=== PATIENT | female | born 1990 | race Caucasian/White ===

== ENCOUNTER 2021-03-14 14:37 | Outpatient (CLI) | payer OTHER, SELFPAY ==
[2021-03-14] VITALS (10 sets, daily range): BP systolic 113–141; BP diastolic 62–108; PULSE 50–89
[2021-03-14 15:30] LABS: Basophils Absolute Auto 0.1 K/mm3 (0.0-0.1); Basophils Percent Auto 0.5 % (0.2-1.2); Eosinophils Absolute Auto 0.2 K/mm3 (0-0.3); Eosinophils Percent Auto 1.9 % (0-4.4); Immature Granulocyte Absolute 0.04 K/mm3 (0.00-0.031); Immature Granulocyte Percent A 0.4 % (0-0.5); Lymphocytes Percent Auto 18.7 % (18.3-44.2); Mean Corpuscular HGB Conc 32.4 g/dl (32-36); Mean Corpuscular Hemoglobin 31.2 pg (26-34); Mean Corpuscular Volume 96.3 fl (80-100); Mean Platelet Volume 11.4 fl (7.4-10.4); Monocytes Absolute Auto 0.5 K/mm3 (0.1-0.6); Monocytes Percent Auto 4.7 % (2.6-8.5); Neutrophils Absolute Auto 7.9 K/mm3 (1.3-6.7); Neutrophils Percent Auto 73.8 % (45.5-73.1); Platelet Count Result 194 k/mm3 (150-375); Red Blood Count 3.53 M/mm3 (4.2-5.4); White Blood Count 10.7 K/mm3 (4.5-10.0)
[2021-03-14 15:34] LABS: Add Urine Microscopic? YES; Appearance Urine Clear (Clear); Bacteria Urine Trace /hpf; Bilirubin Urine 1+ (Negative); Blood Urine Negative (Negative); Color Urine Amber (Yellow); Glucose Urine UA Negative (Negative); Ketones Urine Negative (Negative); Leukocyte Esterase Ur Trace LEU/UL (NEGATIVE); Mucus Urine Rare /lpf; Nitrate Urine Negative (Negative); Protein Urine 2+ mg/dL (Negative); RBC Urine 0-2 /hpf (0-2); Squamous Epithelial Cell Urine Rare /hpf (Few)
[2021-03-14 15:40] LABS: Alanine Aminotransferase 18 U/L (4-35); Albumin Level 2.9 g/dL (3.5-5.1); Alkaline Phosphatase 127 U/L (38-126); Anion Gap 4 mmol/L (8-16); Aspartate Amino Transferase 25 U/L (14-36); Bilirubin,Total 0.3 mg/dL (0.2-1.3); Blood Urea Nitrogen 11 mg/dL (7-17); Calcium 8.4 mg/dL (8.4-10.2); Carbon Dioxide 21 mmol/L (22-30); Chloride 110 mmol/L (98-107); Estimated Glomerular Filt Rate > 60; Glucose 87 mg/dL (65-110); Sodium 135 mmol/L (137-145)
[2021-03-14 15:47] LABS: Specific Grav Ur 1.046 (1.001-1.035)
--- NOTE | 2021-03-14 16:31 | PCCCNOTE ---
Care Coordination Consult: Met with pt. alone. Pt. reports she lives at home with her Iban and Female significant other Farida. Pt. reports that both Iban and Summer are supportive, however Iban can be selfish at times and he tends to pout if he doesn't get his way. Pt. reports that she wants Farida to be her support person when she gives in April and this will likely hurt Bian's feelings. Pt. denies that Iban will be physically or emotionally abusive to her. Pt. did again report he will likely get his feelings hurt as he wants to be present for the . Pt. reports that ultimately it is her choice which of her spouses she wants with her during the and feels Summer will be more there for her emotionally. This is pt.'s, Perez, and Iban's first child. Summer did come in towards the end of Care Coordination being in the room and again reiterated that neither pt. or Summer are fearful of Iban. They report they will speak to him together about pt.'s choice to have Summer be her support person at time of baby's .
[2021-03-14 17:25] LABS: Creatinine Urine 572.1 mg/dL
[2021-03-14 17:28] LABS: Total Protein Urine Random < 5 mg/dL; Ur Ttl Prot Creatinine Ratio < 0.01 mg/mg (0-0.20)
--- NOTE | 2021-03-14 17:56 | PC.NURSE ---
2470--Pt's s.o. had approached us re: having 2 s.o. present with the pt. because they are polyamorous, and it is very important that all the parents be present at the . After speaking with Felicita Ze about their situation it was decided to stay with the current one support person allowed with the pt. The pt. then decided she will not have any support people. After speaking with the pt. and encouraging her to maybe choose the person who would be the most supportive and positive, she states, yeah, if he will allow that. I then asked about her home situation and if she feels safe at home. Her response was yeah, physically. I then asked if she was free to come and go as she wishes and her response was in theory, but I don't have a license, or a car [place] I'm actually pretty isolated. After our conversation I then spoke with my charge nurse and placed a care coordination consult to come see the pt.
--- NOTE | 2021-03-14 18:23 | PC.NURSE ---
1745--Full report given to Libby Piper CNM, re: v.s., fhr tracing, uterine activity, and home situation. Orders for DC home.
== END 2021-03-14 17:50 | disposition home or self-care (01) ==
LOC: ANHOBOP 14:47 → ANHOBPP 15:04
PROVIDERS: PCP Advanced Practice Midwife; Visit Provider Obstetrics & Gynecology
DX: O13.9 Gestational [pregnancy-induced] hypertension without significant proteinuria, unspecified trimester (principal); Z3A.00 Weeks of gestation of pregnancy not specified
CPT/HCPCS: 36415; 59025; 80053; 81001; 82570; 84156; 84550; 85025; 87086; 87088; 99199

== ENCOUNTER 2021-04-07 19:48 | Inpatient (IN) | payer OTHER, SELFPAY ==
--- NOTE | 2021-03-23 16:34 | PC.NURSE ---
PATIENT LIVES WITH AND FEMALE PARTNER
--- NOTE | 2021-04-07 23:30 | PC.NURSE ---
ARRIVED IN OB at 194. Admission deferred on arrival due to cenus in department. Libby Piper CNM and pt advised of delay.
[2021-04-07 23:37] LABS: Glucose Point of Care 69 mg/dl (65-105)
[2021-04-07 23:44] LABS: Basophils Absolute Auto 0.1 K/mm3 (0.0-0.1); Basophils Percent Auto 0.5 % (0.2-1.2); Eosinophils Absolute Auto 0.2 K/mm3 (0-0.3); Eosinophils Percent Auto 1.5 % (0-4.4); Hematocrit 36.5 % (37.0-47.0); Hemoglobin 11.9 g/dL (12.0-15.0); Immature Granulocyte Absolute 0.05 K/mm3 (0.00-0.031); Immature Granulocyte Percent A 0.4 % (0-0.5); Lymphocytes Absolute Auto 2.58 K/mm3 (0.9-3.2); Lymphocytes Percent Auto 22.1 % (18.3-44.2); Mean Corpuscular HGB Conc 32.6 g/dl (32-36); Mean Corpuscular Hemoglobin 30.4 pg (26-34); Mean Corpuscular Volume 93.4 fl (80-100); Monocytes Absolute Auto 0.6 K/mm3 (0.1-0.6); Neutrophils Absolute Auto 8.2 K/mm3 (1.3-6.7); Neutrophils Percent Auto 70.5 % (45.5-73.1); Platelet Count Result 195 k/mm3 (150-375); Red Blood Count 3.91 M/mm3 (4.2-5.4); Red Cell Distribution Width 13.2 % (11.5-14.5); White Blood Count 11.7 K/mm3 (4.5-10.0)
[2021-04-07 23:54] LABS: Alanine Aminotransferase 15 U/L (4-35); Alkaline Phosphatase 153 U/L (38-126); Anion Gap 6 mmol/L (8-16); Aspartate Amino Transferase 25 U/L (14-36); Bilirubin,Total 0.1 mg/dL (0.2-1.3); Blood Urea Nitrogen 10 mg/dL (7-17); Calcium 9.2 mg/dL (8.4-10.2); Carbon Dioxide 20 mmol/L (22-30); Chloride 107 mmol/L (98-107); Estimated Glomerular Filt Rate > 60; Glucose 65 mg/dL (65-110); Potassium 3.8 mmol/L (3.4-5.0); Sodium 133 mmol/L (137-145)
[2021-04-08] VITALS (153 sets, daily range): BP systolic 87–156; BP diastolic 58–110; PULSE 44–111; RESP 16–18; TEMP 36.5–37.2; O2SAT 96–100
--- NOTE | 2021-04-08 00:21 | LDADM ---
This patient, Sven Lewis, was admitted to Labor/Delivery/Recovery 108 on 04/07/21 at 19:48. Plans for labor, pain management and were discussed with patient. Patient/family oriented to hospital policies and general routines including ID bracelet, bed and alarms, visiting hours, pain management, procedures, bathroom and other care routines, personal items, smoking policy, room service/diet and guest tray routines, security routines, and visiting hours. Patient/Family are encouraged to report perceived risks to care and to ask questions if they do not understand what they are told or what they should do. See OBIX for further documentation.
[2021-04-08] MEDS: OXYTOCIN 30 UNITS/NS 500 ML 30 UNITS/500 ML BAG 4 UNITS IV CONT (01:00)
[2021-04-08] MEDS: LACTATED RINGERS 1,000 ML 125 ML IV CONT ×3 (01:00→09:16)
[2021-04-08 01:52] LABS: Uric Acid 6.5 mg/dL (2.5-7.5)
[2021-04-08 02:30] LABS: HIV 1/2 Ab P24 Ag Result Negative (Negative)
[2021-04-08 03:52] LABS: Glucose Point of Care 108 mg/dl (65-105)
[2021-04-08 05:47] LABS: Amphetamine Screen Urine Negative (Negative); Barbiturate Screen Urine Negative (Negative); Benzodiazepines Screen Urine Negative (Negative); Cannabinoid Screen Urine Positive (Negative); Cocaine Screen Urine Negative (Negative); Methadone Screen Urine Negative (Negative); Opiate Screen Urine Negative (Negative); Phencyclidine Screen Urine Negative (Negative)
--- NOTE | 2021-04-08 08:08 | WPDANESEPPF ---
Anes - Initial Pre Proc Eval Date/Time: 04/08/21 08:08 Surgeon: Karen Merida MD Pre Op Diagnosis: IOL Patient Data Age: 30 Gender: F Height: Weight: Last Vital Signs Temp 36.6 C 04/08/21 07:51 Pulse 79 04/08/21 08:07 Resp 16 04/08/21 07:51 BP 127/95 H 04/08/21 08:07 Pulse Ox 98 04/08/21 08:05 Allergies Allergy/AdvReac Type Severity Reaction Status Date / Time hydroxyzine Allergy Unknown Unknown Verified 03/23/21 15:51 meperidine Allergy Unknown Anaphylactic Verified 03/23/21 15:51 Shock sumatriptan Allergy Unknown Other Verified 03/23/21 15:51 lanolin Allergy Rash Verified 03/23/21 15:51 Home Medications Medication Instructions Recorded Confirmed Type albuterol 1 mcg INHALATION PRN 03/23/21 04/07/21 History ondansetron HCl [Zofran] 8 mg PO Q12H 03/23/21 03/23/21 History prenat.vits,taryn,[id number] 1 tablet PO DAILY 03/23/21 03/23/21 History [ #2] Laboratory Tests 04/07/21 04/07/21 04/07/21 23:31 23:31 23:31 WBC 11.7 K/mm3 H K/mm3 (4.5-10.0) RBC 3.91 M/mm3 L M/mm3 (4.2-5.4) Hgb 11.9 g/dL L g/dL (12.0-15.0) Hct 36.5 % L % (37.0-47.0) MCV 93.4 fl fl (80-100) MCH 30.4 pg pg (26-34) MCHC 32.6 g/dl g/dl (32-36) RDW 13.2 % % (11.5-14.5) Plt Count 195 k/mm3 k/mm3 (150-375) MPV 12.0 fl H fl (7.4-10.4) Immature Gran % (Auto) 0.4 % % (0-0.5) Neut % (Auto) 70.5 % % (45.5-73.1) Lymph % (Auto) 22.1 % % (18.3-44.2) Saline % (Auto) 5.0 % % (2.6-8.5) Eos % (Auto) 1.5 % % (0-4.4) Baso % (Auto) 0.5 % % (0.2-1.2) Lymph # (Auto) 2.58 K/mm3 K/mm3 (0.9-3.2) Saline # (Auto) 0.6 K/mm3 K/mm3 (0.1-0.6) Eos # (Auto) 0.2 K/mm3 K/mm3 (0-0.3) Baso # (Auto) 0.1 K/mm3 K/mm3 (0.0-0.1) Abs Immat Gran (auto) 0.05 K/mm3 H K/mm3 (0.00-0.031) Absolute Neuts (auto) 8.2 K/mm3 H K/mm3 (1.3-6.7) Absolute Nucleated RBC 0.0 K/mm3 K/mm3 (0.0-0.012) Nucleated RBC % 0.0 % % (0.0-0.2) Sodium Potassium Chloride Carbon Dioxide Anion Gap BUN Creatinine Estim Creat Clear Calc Estimated GFR Glucose POC Capillary Glucose Uric Acid Calcium Total Bilirubin AST ALT Alkaline Phosphatase Total Protein Albumin Urine Opiates Screen Urine Methadone Screen Ur Barbiturates Screen Ur Phencyclidine Scrn Ur Amphetamine Screen U Benzodiazepines Scrn Urine Cocaine Screen U Cannabinoids Screen RPR Pending HIV 1&2 Ab/P24 Ag 4thGn Blood Type AB Positive Antibody Screen Negative 04/07/21 04/07/21 04/07/21 23:31 23:31 23:31 WBC RBC Hgb Hct MCV MCH MCHC RDW Plt Count MPV Immature Gran % (Auto) Neut % (Auto) Lymph % (Auto) Saline % (Auto) Eos % (Auto) Baso % (Auto) Lymph # (Auto) Saline # (Auto) Eos # (Auto) Baso # (Auto) Abs Immat Gran (auto) Absolute Neuts (auto) Absolute Nucleated RBC Nucleated RBC % Sodium 133 mmol/L L mmol/L (137-145) Potassium 3.8 mmol/L mmol/L (3.4-5.0) Chloride 107 mmol/L mmol/L (98-107) Carbon Dioxide 20 mmol/L L mmol/L (22-30) Anion Gap 6 mmol/L L mmol/L (8-16) BUN 10 mg/dL mg/dL (7-17)
[2021-04-08 09:13] LABS: Glucose Point of Care 73 mg/dl (65-105)
[2021-04-08 09:47] LABS: Rapid Plasma Reagin Non-Reactive (NonReactive)
[2021-04-08 10:59] LABS: Glucose Point of Care 59 mg/dl (65-105)
[2021-04-08] MEDS: DEXTROSE 5%/LACTATED RINGERS 1,000 ML 125 ML IV CONT (11:06)
[2021-04-08] MEDS: FAMOTIDINE 20 MG/2 ML VIAL IV PUSH (12:10)
--- NOTE | 2021-04-08 14:20 | WPDOBADMIT ---
Obstetrics - Admit Note Admission Note: 30 y/o G1 here for induction of labor d/t gestational hypertension and GDM. record reviewed. No pertinent additions to the history and/or any subsequent changes in the physical findings that are not consistent with the expected course of the were found. Additions to the history and/or subsequent changes in the physical findings follow. None.
--- NOTE | 2021-04-08 14:20 | PM.OBPRVD ---
OB - Delivery Note Procedure events: Gestational Diabetes, Induced HTN and Labor Induction Intrapartal events: None Delivery monitor: external FHT, external uterine and internal FHT Route of delivery: Episiotomy description: None Laceration Description: None Quantitative Blood Loss (ml): 69 Anesthesia type: Epidural Narrative: Mother and baby in stable condition. Cord gasses collected and handed off to staff. Baby Date of : 04/08/21 Weeks of gestation at delivery: 38 presentation: vertex position: Right Occiput Anterior Placenta delivery description: Spontaneous score one minute: 9 score five minutes: 9 Narrative: Meconium fluid. Peds present for delivery. Infant vigorous at delivery.
[2021-04-08] MEDS: OXYTOCIN 30 UNITS/NS 500 ML 30 UNITS/500 ML BAG 125 UNITS IV CONT (14:37)
[2021-04-08] MEDS: BENZOCAINE 20% AER SPR (*SP) 56 GM CAN 1 SPRAY TOPICAL (16:20)
[2021-04-08] MEDS: WITCH HAZEL 40 PADS 1 PAD TOPICAL (16:20)
[2021-04-08] MEDS: IBUPROFEN 600 MG TABLET PO ×2 (16:20→22:36)
--- NOTE | 2021-04-08 17:00 | PC.NURSE ---
Patient transferred to post room #285 per wheelchair. Support person present. Oriented to unit, room, information board, rooming in, admission packet and security measures. Patient verbalizes understanding.
[2021-04-09] VITALS: BP 147/83; PULSE 66; RESP 16; TEMP 37; O2SAT 100
[2021-04-09] MEDS: SIMETHICONE 80 MG TAB.CHEW PO (01:21)
[2021-04-09 04:30] LABS: Glucose Point of Care 74 mg/dl (65-105)
[2021-04-09] MEDS: IBUPROFEN 600 MG TABLET PO ×2 (04:40→11:27)
[2021-04-09 04:50] VITALS: BP 152/82; PULSE 60; RESP 18; TEMP 36.7; O2SAT 98
--- NOTE | 2021-04-09 08:34 | PM.OBPNVD ---
OB - PN: Subj Subjective Date/time seen: 04/09/21 08:34 Patient comments: no complaints baby status: doing well OB - PN: Obj Data Labs CBC & Chem 7: 04/07/21 23:31 04/07/21 23:31 Labs: Laboratory Results - last 24 hr 04/07/21 04/08/21 04/08/21 23:31 09:05 10:55 POC Capillary Glucose 73 59 L* RPR Non-reactive 04/09/21 04:26 POC Capillary Glucose 74 RPR OB - PN A/P Plan day: 1 Plan: routine care Time Spent With Patient Time: Total time spent is greater than 50% in coordination of care (as documented) at patient's floor/unit and/or counseling patient: Review of Systems Review of Systems: All systems reviewed & are unremarkable except as noted in HPI and below Exam Narrative: denies lai, visual changes and epigastric pain Const: General: healthy appearing and comfortable Psych: Thought process: Normal thought process present Judgement: Good judgement present (Psych)
--- NOTE | 2021-04-09 09:02 | PM.OBDSVD ---
DS: Admitting Diagnosis Admitting Diagnosis REBECCA GHTN OB - DS: Summary OB Procedures : None OB Procedures Intrapartum: Spontaneous Vag Delivery OB Procedures: : None Time Spent with Patient Time attestation: Total time spent providing and/or coordinating discharge services: DS: Data Data Completed and Pending Pending studies at discharge: Pending at discharge 04/08/21 14:08 Surgical [PTH] Routine Labs on day of discharge: Labs from last 24 hours 04/09/21 04/08/21 04/08/21 04:26 10:55 09:05 POC Capillary Glucose 74 59 L* 73 RPR 04/07/21 23:31 POC Capillary Glucose RPR Non-reactive Discharge Plan Discharge Attending physician on discharge: Karen Merida Discharging Clinician: Pau Rossi Patient Disposition: Home, Self-Care Activity: pelvic rest Diet: regular Patient Instructions: Antibiotic Form Stand Alone Forms: General Discharge Information Follow-up/Referrals: Lydia Piper CNM [Certified Nurse Stereotyper] - 1 Week Discharge Medications: Continued ondansetron HCl [Zofran] 8 mg Tablet 8 mg PO Q12H RF: 0 albuterol 90 mcg/actuation Aerosol 1 mcg INHALATION PRN RF: 0 #2 Tablet 1 tablet PO DAILY RF: 0 Date of admission: 04/07/21 19:48 Primary Care Provider: PHYSICIAN,METAL TILE LATHER Admitting Provider: Karen Merida Attending physician on admission: Karen Merida Condition: Stable
[2021-04-09 10:00] VITALS: BP 132/59; PULSE 69; PULSE 75; RESP 14; TEMP 36.7; O2SAT 100
[2021-04-09] MEDS: DOCUSATE SODIUM 100 MG CAPSULE PO (11:27)
[2021-04-09] MEDS: MULTIVIT/MIN/PREN/FOL AC/IRON TABLET 1 TAB PO (11:27)
[2021-04-09 12:00] VITALS: BP 161/82; PULSE 68; RESP 20
[2021-04-09 12:09] LABS: Hematocrit 32.6 % (37.0-47.0); Hemoglobin 10.3 g/dL (12.0-15.0); Mean Corpuscular HGB Conc 31.6 g/dl (32-36); Mean Platelet Volume 11.7 fl (7.4-10.4); Platelet Count Result 152 k/mm3 (150-375); Red Blood Count 3.43 M/mm3 (4.2-5.4); Red Cell Distribution Width 13.7 % (11.5-14.5); White Blood Count 10.8 K/mm3 (4.5-10.0)
[2021-04-09 12:11] LABS: Hematocrit 33.1 % (37.0-47.0); Hemoglobin 10.4 g/dL (12.0-15.0)
[2021-04-09 12:24] LABS: Alanine Aminotransferase 18 U/L (4-35); Albumin Level 2.8 g/dL (3.5-5.1); Alkaline Phosphatase 132 U/L (38-126); Anion Gap 4 mmol/L (8-16); Aspartate Amino Transferase 37 U/L (14-36); Bilirubin,Total 0.4 mg/dL (0.2-1.3); Blood Urea Nitrogen 9 mg/dL (7-17); Calcium 8.6 mg/dL (8.4-10.2); Carbon Dioxide 23 mmol/L (22-30); Chloride 108 mmol/L (98-107); Estimated Glomerular Filt Rate > 60; Glucose 78 mg/dL (65-110); Glucose 79 mg/dL (65-110); Potassium 4.3 mmol/L (3.4-5.0); Sodium 135 mmol/L (137-145); Uric Acid 5.7 mg/dL (2.5-7.5)
[2021-04-09 17:45] VITALS: BP 146/84; PULSE 72; RESP 20
--- NOTE | 2021-04-09 19:22 | PC.NURSE ---
04/09/2021 at 1910 Patient was given the opportunity to view the discharge video Mother & Baby Care, The First Two Weeks and to ask questions. Patient declined viewing the video and has been given the mother/baby guide for home reference.
[2021-04-12 08:20] VITALS: BP 183/102; PULSE 68; RESP 20
== END 2021-04-09 19:14 | disposition home or self-care (01) | DRG 560 ==
LOC: ANHLDR 21:57 → ANHOB2 04-08 17:20
PROVIDERS: Advanced Practice Midwife; Admitting Provider Obstetrics & Gynecology; Visit Provider Obstetrics & Gynecology
DX: O24.429 Gestational diabetes mellitus in childbirth, unspecified control (principal); O13.4 Gestational [pregnancy-induced] hypertension without significant proteinuria, complicating childbirth; O99.334 Smoking (tobacco) complicating childbirth; O77.0 Labor and delivery complicated by meconium in amniotic fluid; O76 Abnormality in fetal heart rate and rhythm complicating labor and delivery; Z3A.38 38 weeks gestation of pregnancy; Z37.0 Single live birth
CPT/HCPCS: 36415; 80053; 80307; 82947; 82948; 84550; 85014; 85018; 85025; 85027; 86592; 86703; 86850; 86900; 86901; 88307; A9270; G0432; J2590; J2795; J7120; J7121

== ENCOUNTER 2021-04-12 09:22 | Observation (INO) | payer OTHER, SELFPAY ==
[2021-04-12] VITALS (18 sets, daily range): BP systolic 127–177; BP diastolic 69–99; PULSE 50–94; RESP 18; TEMP 36.6–37.2; BMI 34.2
--- NOTE | 2021-04-12 10:29 | OBADM ---
This patient, Sven Lewis, admitted to the OB room 113 for observation for hypertension. Patient/family oriented to hospital policies and general routines including ID bracelet, bed and alarms, visiting hours, pain management, procedures, bathroom and other care routines, personal items, smoking policy, room service/diet, and visiting hours. Patient/Family are encouraged to report perceived risks to care and to ask questions if they do not understand what they are told or what they should do.
[2021-04-12 10:51] LABS: Basophils Percent Auto 0.4 % (0.2-1.2); Eosinophils Absolute Auto 0.4 K/mm3 (0-0.3); Eosinophils Percent Auto 4.1 % (0-4.4); Hematocrit 36.9 % (37.0-47.0); Hemoglobin 11.7 g/dL (12.0-15.0); Immature Granulocyte Absolute 0.03 K/mm3 (0.00-0.031); Immature Granulocyte Percent A 0.3 % (0-0.5); Lymphocytes Absolute Auto 1.88 K/mm3 (0.9-3.2); Lymphocytes Percent Auto 20.2 % (18.3-44.2); Mean Corpuscular HGB Conc 31.7 g/dl (32-36); Mean Corpuscular Hemoglobin 29.7 pg (26-34); Mean Corpuscular Volume 93.7 fl (80-100); Mean Platelet Volume 10.8 fl (7.4-10.4); Monocytes Absolute Auto 0.4 K/mm3 (0.1-0.6); Monocytes Percent Auto 4.2 % (2.6-8.5); Neutrophils Absolute Auto 6.6 K/mm3 (1.3-6.7); Neutrophils Percent Auto 70.8 % (45.5-73.1); Platelet Count Result 251 k/mm3 (150-375); Red Blood Count 3.94 M/mm3 (4.2-5.4); Red Cell Distribution Width 13.6 % (11.5-14.5); White Blood Count 9.3 K/mm3 (4.5-10.0)
--- NOTE | 2021-04-12 10:55 | PC.NURSE ---
Kishore Piper CNM due to severe initial BP's.
--- NOTE | 2021-04-12 11:40 | PC.NURSE ---
Dr. Merida on unit and informed pt here with elevated BP's in the severe range following follow- up appointment. Lydia KONG was paged, but hasn't returned call. Informed of CBC results, CMP still pending. Order received for IV Labetalol per protocol.
[2021-04-12 11:57] LABS: Alanine Aminotransferase 25 U/L (4-35); Albumin Level 3.5 g/dL (3.5-5.1); Alkaline Phosphatase 125 U/L (38-126); Anion Gap 6 mmol/L (8-16); Aspartate Amino Transferase 46 U/L (14-36); Bilirubin,Total 0.3 mg/dL (0.2-1.3); Blood Urea Nitrogen 13 mg/dL (7-17); Carbon Dioxide 25 mmol/L (22-30); Chloride 108 mmol/L (98-107); Estimated Glomerular Filt Rate > 60; Glucose 80 mg/dL (65-110); Potassium 4.4 mmol/L (3.4-5.0); Sodium 139 mmol/L (137-145); Uric Acid 5.6 mg/dL (2.5-7.5)
--- NOTE | 2021-04-12 11:58 | PC.NURSE ---
Dr. Merida still on unit and informed pt refuses IV start. 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 Order received to follow the Procardia protocol.
--- NOTE | 2021-04-12 12:02 | PC.NURSE ---
Libby Piper [facility] returned call and informed of pt's BP's, CBC, CMP, and uric acid results. Informed Dr. Merida was on unit and initially gave orders for IV Labetalol which pt refused the IV and now have orders for Procardia PO.
[2021-04-12] MEDS: NIFEdipine 10 MG CAPSULE PO (12:08)
[2021-04-12] MEDS: NIFEdipine 10 MG CAPSULE 20 MG PO (12:30)
[2021-04-12] MEDS: ACETAMINOPHEN 500 MG TABLET 1000 MG PO (14:57)
--- NOTE | 2021-04-12 15:55 | PC.NURSE ---
Pt given ice pack for continued headache.
--- NOTE | 2021-04-12 16:17 | PC.NURSE ---
Libby Piper CNM called to check on pt. Updated on BP's, headache worse now, denies visual disturbance, epigastric/RUQ pain, reflexes normal. Discussed with pt that we are concerned about her headache because if it is from the preeclampsia it could be a precursor to having seizures. Discussed that CNM wanted to start pt on Magnesium sulfate, but assumed she would refuse it. Pt states she doesn't want an IV. Order initially received for Fioricet a one time dose.
--- NOTE | 2021-04-12 16:29 | PC.NURSE ---
Libby Piper CNM informed of drug interaction between Fioricet and Nifedipine- it can increase it's metabolism rate and decrease the effectiveness of the Procardia. Discussed that pt doesn't want to take a Narcotic due to family history of drug addiction. One time order for Motrin received. CNM also stated Dr. Jeffers wanted pt to sign something stating she was refusing the magnesium sulfate. Informed CNM that we don't have a form for that, but I would again explain the reason why we wanted to start Magnesium sulfate, put the order in for it, and then if she still refuses, have it documented on her med sheet her refusal. To repeat labs in am.
[2021-04-12] MEDS: IBUPROFEN 600 MG TABLET PO (17:17)
--- NOTE | 2021-04-12 17:17 | PC.NURSE ---
Motrin given for headache. Again, spoke with pt regarding the concern that pt might have a seizure due to the preeclampsia. Both Dr. Jeffers and Libby Piper [facility] want pt to receive Magnesium sulfate through an IV to help prevent seizures. Discussed how in preeclampsia- especially when severe BP's and a headache are involved- of the increased risk of having a seizure. Discussed that if she is still refusing the IV and Magnesium sulfate, they want pt's refusal documented. Pt states she still doesn't want the IV or Magnesium sulfate even if we have to document her refusal.
[2021-04-12] MEDS: NIFEdipine 30 MG TAB.ER.24 PO (17:56)
--- NOTE | 2021-04-12 20:42 | PC.NURSE ---
Update to Dr. Jeffers vital signs/blood pressures. Pt states headache is persisting but improved since Motrin. Motrin PRN ordered. Pt continues to refuse Magnesium Therapy per order. Pt to sign refusal for treatment to include risk of stroke, seizuure, and .
--- NOTE | 2021-04-12 22:30 | PC.NURSE ---
Pt sleeping quietly.
[2021-04-13] VITALS (10 sets, daily range): BP systolic 126–173; BP diastolic 74–100; PULSE 51–73; RESP 16; TEMP 36.6–36.7
--- NOTE | 2021-04-13 00:03 | PC.NURSE ---
Addendum entered by Alvarez Rodas RN 04/13/21 00:11: TIME NOTE 04/12/2021 at 2055 Original Note: Discussion with pt regarding need for Magnesium, risk of seizure, stroke and possibly . Pt continues to refuse. Refusal placed in comments of AMA form and pt signed per MD order. Pt resting quietly at this time.
--- NOTE | 2021-04-13 03:55 | PC.NURSE ---
Pt states she is getting engorged and would like a breast pump. Pt states she had planned to pump and bottle feed with formula supplement. Breast pump to room and pt instructed on use.
[2021-04-13 05:03] LABS: Basophils Absolute Auto 0.1 K/mm3 (0.0-0.1); Basophils Percent Auto 0.7 % (0.2-1.2); Eosinophils Absolute Auto 0.4 K/mm3 (0-0.3); Eosinophils Percent Auto 4.5 % (0-4.4); Hematocrit 39.8 % (37.0-47.0); Hemoglobin 12.6 g/dL (12.0-15.0); Immature Granulocyte Absolute 0.02 K/mm3 (0.00-0.031); Immature Granulocyte Percent A 0.2 % (0-0.5); Lymphocytes Absolute Auto 2.01 K/mm3 (0.9-3.2); Lymphocytes Percent Auto 23.8 % (18.3-44.2); Mean Corpuscular HGB Conc 31.7 g/dl (32-36); Mean Corpuscular Hemoglobin 30.2 pg (26-34); Mean Corpuscular Volume 95.4 fl (80-100); Mean Platelet Volume 10.6 fl (7.4-10.4); Monocytes Absolute Auto 0.5 K/mm3 (0.1-0.6); Monocytes Percent Auto 5.8 % (2.6-8.5); Neutrophils Absolute Auto 5.5 K/mm3 (1.3-6.7); Platelet Count Result 264 k/mm3 (150-375); Red Blood Count 4.17 M/mm3 (4.2-5.4); Red Cell Distribution Width 13.9 % (11.5-14.5); White Blood Count 8.5 K/mm3 (4.5-10.0)
[2021-04-13 05:12] LABS: Alanine Aminotransferase 28 U/L (4-35); Albumin Level 3.4 g/dL (3.5-5.1); Alkaline Phosphatase 121 U/L (38-126); Anion Gap 6 mmol/L (8-16); Aspartate Amino Transferase 40 U/L (14-36); Bilirubin,Total 0.6 mg/dL (0.2-1.3); Blood Urea Nitrogen 10 mg/dL (7-17); Calcium 8.6 mg/dL (8.4-10.2); Carbon Dioxide 20 mmol/L (22-30); Chloride 108 mmol/L (98-107); Estimated CRCL calculation 83 ml/min; Estimated Glomerular Filt Rate > 60; Glucose 90 mg/dL (65-110); Sodium 134 mmol/L (137-145); Uric Acid 6.3 mg/dL (2.5-7.5)
[2021-04-13] MEDS: IBUPROFEN 600 MG TABLET PO (07:10)
--- NOTE | 2021-04-13 08:05 | PC.NURSE ---
Dr. Merida on unit and has been in to see pt. Pt's headache resolved with the Motrin. Reviewed BP's and morning labs. Additional orders received.
--- NOTE | 2021-04-13 08:06 | PM.OBPNVD ---
OB - PN: Subj Subjective Date/time seen: 04/13/21 08:06 denies ADAMES/ BV/EP. NO worsening edema. Mild ADAMES previously that resolved with NSAID OB - PN: Obj Data Labs CBC & Chem 7: 04/13/21 04:34 04/13/21 04:34 Labs: Laboratory Results - last 24 hr 04/12/21 04/12/21 04/13/21 10:39 10:39 04:34 WBC 9.3 8.5 RBC 3.94 L 4.17 L Hgb 11.7 L 12.6 Hct 36.9 L 39.8 MCV 93.7 95.4 MCH 29.7 30.2 MCHC 31.7 L 31.7 L RDW 13.6 13.9 Plt Count 251 D 264 MPV 10.8 H 10.6 H Immature Gran % (Auto) 0.3 0.2 Neut % (Auto) 70.8 65.0 Lymph % (Auto) 20.2 23.8 Wharton % (Auto) 4.2 5.8 Eos % (Auto) 4.1 4.5 H Baso % (Auto) 0.4 0.7 Lymph # (Auto) 1.88 2.01 [place]arton # (Auto) 0.4 0.5 Eos # (Auto) 0.4 H 0.4 H Baso # (Auto) 0.0 0.1 Abs Immat Gran (auto) 0.03 0.02 Absolute Neuts (auto) 6.6 5.5 Absolute Nucleated RBC 0.0 0.0 Nucleated RBC % 0.0 0.0 Sodium 139 Potassium 4.4 Chloride 108 H Carbon Dioxide 25 Anion Gap 6 L BUN 13 Creatinine 0.90 Estim Creat Clear Calc Not Reportable Estimated GFR > 60 Glucose 80 Uric Acid 5.6 Calcium 9.0 Total Bilirubin 0.3 AST 46 H ALT 25 Alkaline Phosphatase 125 Total Protein 7.0 Albumin 3.5 04/13/21 04:34 WBC RBC Hgb Hct MCV MCH MCHC RDW Plt Count MPV Immature Gran % (Auto) Neut % (Auto) Lymph % (Auto) [place]arton % (Auto) Eos % (Auto) Baso % (Auto) Lymph # (Auto) [place]arton # (Auto) Eos # (Auto) Baso # (Auto) Abs Immat Gran (auto) Absolute Neuts (auto) Absolute Nucleated RBC Nucleated RBC % Sodium 134 L Potassium 4.0 Chloride 108 H Carbon Dioxide 20 L Anion Gap 6 L BUN 10 Creatinine 0.90 Estim Creat Clear Calc 83 Estimated GFR > 60 Glucose 90 Uric Acid 6.3 Calcium 8.6 Total Bilirubin 0.6 AST 40 H ALT 28 Alkaline Phosphatase 121 Total Protein 7.0 Albumin 3.4 L OB - PN A/P Assessment and Plan (1) PIH ( induced hypertension): Code(s): O13.9 - Gestational [-induced] hypertension without significant proteinuria, unspecified trimester Status: Acute Assessment and Plan: This patient is a 31-year-old female who is 5 days from a vaginal . Her was complicated by gestational hypertension/preeclampsia. She was readmitted for gestational hypertension. She is stable now with some suboptimal pressures. There are some red blood pressures with elevated systolics. Today we have agreed to increase her dose of Procardia. If we can get her blood pressures further way from the severe range then we could will discharge her. She occasionally had BP's the severe range overnight. Her labs are normal. Her baby is doing well. (2) Term delivered: Code(s): O80 - Encounter for full-term uncomplicated delivery Status: Acute Time Spent With Patient Time: Total time spent is greater than 50% in coordination of care (as documented) at patient's floor/unit and/or counseling patient: Exam Const: General: comfortable, no acute distress and alert Resp: Effort & Inspection: normal respiratory effort Auscultation: no crackles, no rales and no rhonchi Cardio: Rate: regular rate Heart sounds: no click, no murmurs and no rubs GI: Inspection: non-distended GI Palp: No Tenderness to palpation present (GI) Auscultation: normal bowel sounds Other: Incision - CDI Extrem: General: normal to inspection, no pedal edema and no calf tenderness
[2021-04-13] MEDS: NIFEdipine 30 MG TAB.ER.24 PO (08:43)
--- NOTE | 2021-04-13 10:57 | PC.NURSE ---
Pt called me into the room asking me to bring in papers so she can sign out AMA. Pt states she just can't stay in the hospital anymore. She has things going on at home that she has to be home for. Pt states her primary care provider had an opening in the office at 1:00 today and she is going to go there. Explained to pt that she has preeclampsia and that is better managed by her OB provider, but if she continues to have BP issues > 6 weeks she will be considered chronic hypertension and her PCP would cover her. Discussed how we are still titrating her BP meds and she is still at risk for seizures, stroke, and/or . Pt still wants to leave.
--- NOTE | 2021-04-13 11:04 | PC.NURSE ---
Called Dr. Merida and informed him pt wants to leave AMA. informed of last BP's. Pt denies headache, visual disturbance, epigastric/RUQ pain. OK with discharging pt to home with Procardia 30 XL q 12 hr. She has an appointment in the office already for BP check.
[2021-04-13] MEDS: MULTIVIT/MIN/PREN/FOL AC/IRON TABLET 1 TAB PO (11:34)
--- NOTE | 2021-04-13 11:41 | PC.NURSE ---
Reviewed discharge instructions with pt and significant other- verbalizes understanding. started fussing and they decided to feed before going home.
== END 2021-04-13 12:10 | disposition home or self-care (01) ==
LOC: ANHOBOP 09:33 → ANHOBPP 09:34 → ANHOBOP 04-13 06:40 → ANHOBPP 04-13 06:40
PROVIDERS: Advanced Practice Midwife; Admitting Provider Obstetrics & Gynecology; Visit Provider Obstetrics & Gynecology
DX: O13.5 Gestational [pregnancy-induced] hypertension without significant proteinuria, complicating the puerperium (principal)
CPT/HCPCS: 36415; 80053; 84550; 85025; A9270; G0378; G0379